=== PATIENT | male | born 1970 | race Caucasian/White ===

== ENCOUNTER 2019-02-25 19:08 | Emergency (ER) | payer OTHER ==
[2019-02-25 19:47] VITALS: BP 153/99
[2019-02-26] MEDS ORDERED: NORCO 5/325 PO ONE (02:22)
[2019-02-26] MEDS ORDERED: NORCO 5/325 ONE (02:26)
[2019-02-26] MEDS ORDERED: TORADOL ONE (03:56)
[2019-02-26] MEDS ORDERED: DECADRON ONE (03:57)
[2019-02-26] MEDS ORDERED: TORADOL IM ONE (03:57)
[2019-02-26] MEDS ORDERED: DECADRON IM ONE (03:57)
--- NOTE | 2019-02-26 04:27 | Emergency Department Report ---
ED General Adult HPI - General Chief complaint: Extremity Injury, Lower Stated complaint: LOWER BACK PAIN/LEGS/RT KNEE PAIN Time Seen by Provider: 02/26/19 02:59 Source: patient Mode of arrival: Ambulatory Limitations: No Limitations - History of Present Illness Initial comments: Patient is a 48-year-old -[place] male with a history of gout who p resents for low back pain x r days , pt denies fall injury or trauma, current tx regimen includes indomethacin, and prednisone, this pain is in usual location and intensity. there i sno fever no chlls. pr remain ambulatory with Onset/Timin -: week(s) Location: upper extremity, lower extremity Radiation: non-radiation Severity scale (0 -10): 5 Quality: aching Consistency: constant Improves with: none Worsens with: movement Treatments Prior to Arrival: NSAID - Related Data Previous Rx's Medication Instructions Recorded Last Taken Type Benzonatate [Tessalon Perles] 100 mg PO Q8HR PRN #30 capsule 10/25/16 Unknown Rx DOXYCYCLINE Hyclate [Vibramycin 100 mg PO QDAY #6 capsule 10/25/16 Unknown Rx CAP] Indomethacin 50 mg PO Q8H 10 Days #30 capsule 02/26/19 Unknown Rx predniSONE [Deltasone] 40 mg PO QDAY 5 Days #10 tab 02/26/19 Unknown Rx Allergies Allergy/AdvReac Type Severity Reaction Status Date / Time azithromycin Allergy Dizziness Verified 02/25/19 20:43 [From Zithromax Z-Antonio] ibuprofen Allergy Shortness Verified 02/25/19 20:43 of Breath ED Review of Systems ROS: Stated complaint: LOWER BACK PAIN/LEGS/RT KNEE PAIN Other details as noted in HPI Constitutional: no symptoms reported Eyes: denies: eye pain, eye discharge, vision change ENT: denies: ear pain, throat pain Respiratory: denies: cough, shortness of breath, wheezing Cardiovascular: denies: chest pain, palpitations Endocrine: no symptoms reported Gastrointestinal: denies: abdominal pain, nausea, diarrhea Genitourinary: denies: urgency, dysuria Musculoskeletal: joint swelling Skin: denies: rash, lesions Neurological: denies: headache, weakness, numbness, paresthesias, confusion, abnormal gait, vertigo Psychiatric: denies: anxiety, depression Hematological/Lymphatic: denies: easy bleeding, easy bruising ED Past Medical Hx - Past Medical History Previous Medical History?: Yes Hx Hypertension: Yes (non compliant with meds) Hx Heart Attack/AMI: Yes (13 years old) Additional medical history: gout - Surgical History Past Surgical History?: Yes Hx Cholecystectomy: Yes Additional Surgical History: Breast skin reduction at [place] - Social History Smoking Status: Never Smoker - Medications Home Medications: Home Medications Medication Instructions Recorded Confirmed Last Taken Type Benzonatate [Tessalon Perles] 100 mg PO Q8HR PRN #30 capsule 10/25/16 Unknown Rx DOXYCYCLINE Hyclate [Vibramycin 100 mg PO QDAY #6 capsule 10/25/16 Unknown Rx CAP] Indomethacin 50 mg PO Q8H 10 Days #30 capsule 02/26/19 Unknown Rx predniSONE [Deltasone] 40 mg PO QDAY 5 Days #10 tab 02/26/19 Unknown Rx ED Physical Exam - General Limitations: No Limitations General appearance: alert, in no apparent distress - Head Head exam: Present: atraumatic, normocephalic - Eye Eye exam: Present: normal appearance Pupils: Present: normal accommodation - ENT ENT exam: Present: mucous membranes moist, TM's normal bilaterally - Neck Neck exam: Present: normal inspection, full ROM. Absent: tenderness, meningismus, lymphadenopathy, thyromegaly - Respiratory Respiratory exam: Present: normal lung sounds bilaterally, decreased breath sounds. Absent: respiratory distress, wheezes, stridor, chest wall tenderness - Cardiovascular Cardiovascular Exam: Present: regular rate, normal rhythm, normal heart sounds. Absent: systolic murmur, diastolic murmur, rubs, gallop - GI/Abdominal GI/Abdominal exam: Present: soft, normal bowel sounds. Absent: mass, pulsatile mass - Rectal Rectal exam: Present: deferred - exam: Present: normal inspection - Extremities Exam Extremities exam: Present: normal inspection, full ROM, normal capillary refill, joint swelling. Absent: pedal edema, calf tenderness - Back Exam Back exam: Present: normal inspection, full ROM, tenderness, paraspinal tenderness. Absent: CVA tenderness (R), CVA tenderness (L), muscle spasm, vertebral tenderness, rash noted - Neurological Exam Neurological exam: Present: alert, oriented X3, normal gait, reflexes normal - Psychiatric Psychiatric exam: Present: normal affect, normal mood - Skin Skin exam: Present: warm, dry, intact, normal color. Absent: rash ED Course Vital Signs 02/25/19 02/25/19 19:30 20:48 Temperature 99.0 F 99.0 F Pulse Rate 87 83 Respiratory 18 18 Rate Blood Pressure 153/99 153/99 O2 Sat by Pulse 99 100 Oximetry ED Medical Decision Making - EKG Data Rate: normal - Medical Decision Making this is a gout exacerbation, plan refill indomethacin, prednisone, follow up with pcp in 2-3 days for medication adjustment pt verabaized agreement and understanding of discharge plan pt dc'd to home in stable condition at this time. Critical care attestation.: If time is entered above; I have spent that time in minutes in the direct care of this critically ill patient, excluding procedure time. ED Disposition Clinical Impression: Exacerbation of gout Back pain Qualifiers: Back pain location: low back pain Chronicity: acute Back pain laterality: right Sciatica presence: without sciatica Qualified Code(s): M54.5 - Low back pain Disposition: DC-01 TO HOME OR SELFCARE Is pt being admited?: No Does the pt Need Aspirin: No Condition: Stable Instructions: Acute Gouty Arthritis (ED), Low Back Strain (ED), Core Strengthening Exercises (GEN) Prescriptions: predniSONE [Deltasone] 40 mg PO QDAY 5 Days #10 tab Indomethacin 50 mg PO Q8H 10 Days #30 capsule Referrals: [facility] [Outside] - 3-5 Days Forms: Work/School Release Form(ED) Time of Disposition: 04:42
== END 2019-02-26 04:47 | disposition home or self-care (01) ==
LOC: ED 19:08
DX: M54.5 Low back pain (principal); M10.9 Gout, unspecified; I10 Essential (primary) hypertension; I25.2 Old myocardial infarction; Z90.49 Acquired absence of other specified parts of digestive tract; Z88.1 Allergy status to other antibiotic agents; Z88.6 Allergy status to analgesic agent
CPT/HCPCS: 96372; 99282; J1100; J1885